=== PATIENT | male | born 1995 | race Caucasian/White ===

== ENCOUNTER 2021-04-02 16:29 | Emergency (ER) | payer OTHER ==
[~2021-04-02] VITALS: Ht 177.8 cm; Wt 77.3 kg
[2021-04-02 16:53] VITALS: BP 118/70
[2021-04-02 17:30] LABS: COVID AG,FIA SOURCE NASOPHARYNGEAL
== END 2021-04-02 18:48 | disposition home or self-care (01) ==
LOC: EMS 16:29
DX: U07.1 COVID-19 (principal)
CPT/HCPCS: 99283